=== PATIENT | female | born 1965 | race Caucasian/White ===

== ENCOUNTER 2017-12-24 21:08 | Emergency (ER) | payer MEDICARE ==
[~2017-12-24] VITALS: Ht 175.3 cm; Wt 86.2 kg
[2017-12-24] MEDS ORDERED: LYRICA300 MG PO (21:28)
[2017-12-24] MEDS ORDERED: AMANTADINE100 MG PO (21:30)
[2017-12-24] MEDS ORDERED: CLARITIN10 MG PO (21:31)
[2017-12-24] MEDS ORDERED: AVONEX PEN30 MCG/0.5 IM (21:31)
[2017-12-24] MEDS ORDERED: ASPIRIN325 MG PO (21:32)
[2017-12-24] MEDS ORDERED: VITAMIN D350000 UNIT PO (21:32)
[2017-12-24] MEDS ORDERED: ESGIC 50-325-41 EACH PO (21:33)
[2017-12-24] MEDS ORDERED: ZOFRAN ODT4 MG PO (21:33)
--- NOTE | 2017-12-25 14:36 | EKG ---
[facility] [address] [facility] [place] [address] Signed Normal sinus rhythm Inferior infarct , age undetermined Anteroseptal infarct , age undetermined Abnormal ECG No previous ECGs available Confirmed by AVELINO SCOTT MD ([id number]) on 12/25/2017 2:36:12 PM Electronically Signed By: AVELINO SCOTT MD 12/25/17 1436 PATIENT NAME: JUDY MURILLO Electrocardiogram DATE OF : 65 PHYSICIAN: AVELINO SCOTT MD REPORT #: [id number] REPORT IS CONFIDENTIAL AND NOT TO BE RELEASED WITHOUT AUTHORIZATION
== END 2017-12-24 23:40 | disposition home or self-care (01) ==
LOC: ED 21:08
DX: R00.2 Palpitations (principal); R07.89 Other chest pain; R06.02 Shortness of breath; Z88.2 Allergy status to sulfonamides; Z88.1 Allergy status to other antibiotic agents; Z79.82 Long term (current) use of aspirin; Z79.899 Other long term (current) drug therapy
CPT/HCPCS: 71045; 80053; 83735; 84484; 85025; 93005; 93010; 99284